=== PATIENT | female | born 1970 | race Caucasian/White ===

== ENCOUNTER → 2016-03-23 | Day surgery (SDC) | payer OTHER ==
[2016-03-20 08:27] VITALS: BMI 26.0
[~2016-03-23] VITALS: Ht 157.5 cm; Wt 65.9 kg
[~2016-03-23] MED LIST: ATV5 PO; CALCTAB13 PO; ESCI1TAB10 PO; GABA-112 PO; GABA1CAP PO; PEDICHW50 PO; PRLSR20 PO
[2016-03-23 08:34] VITALS: Ht 157.5 cm; Wt 65.9 kg
[2016-03-23 08:50] VITALS: BP 109/45; PULSE 80; TEMP 36.9; O2SAT 98
--- NOTE | 2016-04-13 11:37 | Procedure Note ---
Breath Hydrogen Test Interpretation Hydrogen Breath Test Substrate : 10 gm Lactulose Time H CO2 0 5 3.6 20 5 3.6 40 5 3.7 60 60 3.5 80 58 3.8 100 56 3.6 120 51 4 140 60 3.4 160 39 3.5 180 37 3.3 Impression: positive hydrogen breath test (likely represents underlying SIBO) Dr. Angela Samaniego
== END | disposition home or self-care (01) ==
LOC: C.GI 08:08
PROVIDERS: ATTEND Internal Medicine Gastroenterology
DX: R10.11 Right upper quadrant pain (principal); Z98.84 Bariatric surgery status; F32.9 Major depressive disorder, single episode, unspecified; M79.1 Myalgia; E66.3 Overweight; Z68.25 Body mass index [BMI] 25.0-25.9, adult

== ENCOUNTER 2024-03-28 15:48 | Inpatient (IN) ==
[2024-03-28 16:56] LABS: Appearance Urine Clear (Clear); Bilirubin Urine Negative (Negative); Blood Urine Negative (Negative); Color Urine Yellow; Glucose Urine UA Negative (Negative); Ketones Urine Negative (Negative); Leukocyte Esterase Urine Negative (Negative); Nitrite Urine Negative (Negative); Protein Urine Negative (Negative); Specific Gravity Urine 1.004 (1.000-1.030); Urobilinogen Urine Negative (Negative); pH Urine 6.5 (4.5-7.5)
[2024-03-28 17:06] LABS: Basophils # (auto) 0.04 K/uL (0.00-0.20); Basophils % (auto) 0.3 %; Eosinophils % (auto) 0.8 %; Hematocrit (blood only) 38.8 % (37.0-47.0); Hemoglobin 12.9 g/dl (12.0-16.0); Immature Granulocytes # (auto) 0.02 K/uL (0.01-0.20); Immature Granulocytes % (auto) 0.2 %; Lymphocytes # (auto) 1.85 K/uL (1.20-3.40); Lymphocytes % (auto) 15.4 %; Mean Corpuscular Hemoglobin 30.6 pg (25.0-34.0); Mean Corpuscular Hgb Conc 33.2 g/dL (32.0-36.0); Mean Corpuscular Volume 91.9 fL (80.0-100.0); Mean Platelet Volume 8.7 fL (9.4-12.4); Monocytes # (auto) 0.87 K/uL (0.11-0.59); Monocytes % (auto) 7.3 %; Platelet Count 428 K/uL (130-400); RDW Coefficient of Variation 12.2 % (11.5-14.5); Red Blood Count 4.22 M/uL (4.20-5.40); White Blood Count 11.98 K/ul (4.8-10.8)
[2024-03-28 17:13] LABS: Albumin Globulin Ratio 1.2 (0.9-2); Albumin Level 4.1 gm/dl (3.4-5.0); BUN Creatinine Ratio 11.8 (10-20); Bilirubin,Total 0.7 mg/dl (0.2-1.0); Calcium 9.2 mg/dl (8.6-10.3); Creatinine Clr Calc Pharmacy 87.4 ml/min; Globulin 3.4 gm/dl (2.5-4.0); Potassium 4.2 mmol/L (3.5-5.1); Total Protein 7.5 gm/dl (6.0-8.3)
[2024-03-28 17:18] LABS: Pregnancy Test, Serum Negative (Negative)
--- NOTE | 2024-03-28 17:31 | Emergency Department Note ---
ED Provider Note History of Present Illness Chief Complaint: Abdominal Pain Stated Complaint: ABD PAIN Time Seen by Provider: 03/28/24 16:56 Source: patient Mode of arrival: ambulatory Limitations: no limitations This patient is a 53-year-old female who presents to the emergency department for evaluation of right lower quadrant pain x 3 days. Patient reports that she has had ongoing right-sided abdominal pain. It is worse with movements. She has been somewhat constipated but had a bowel movement today. She reports some mild nausea but no vomiting. She has had a decreased appetite. She reports a history of gastric bypass about 15 years ago. She has tried Pepto-Bismol, Tylenol and pantoprazole for her pain without relief. She denies any fevers or urinary symptoms. Last menstrual period was 1 month ago. Home Medications Medication Instructions Recorded Confirmed Type lorazepam 1 mg tablet (Ativan) 0.5 mg PO HS 09/16/21 03/28/24 History multivitamin 1 tab PO DAILY 09/16/21 03/28/24 History trazodone 50 mg tablet 12.5 mg PO HS 09/16/21 03/28/24 History cyanocobalamin (vitamin B-12) 100 mcg IM MONTHLY 09/01/22 03/28/24 History 1,000 mcg/mL injection kit gabapentin 100 mg capsule 100 mg PO HS 09/01/22 03/28/24 History pantoprazole 40 mg tablet,delayed 40 mg PO DAILY PRN Acid Reflux 09/01/22 03/28/24 History release fluoxetine 10 mg capsule (Prozac) 10 mg PO QPM 04/04/23 03/28/24 History ondansetron 4 mg disintegrating 4 mg PO Q6H PRN nausea and 06/08/23 03/28/24 Rx tablet vomiting #12 tabs calcium 500 mg tablet 500 mg PO BID 01/16/24 03/28/24 History ezetimibe 10 mg tablet 10 mg PO HS 01/16/24 03/28/24 History Allergies Allergy/AdvReac Type Severity Reaction Status Date / Time latex AdvReac Mild ITCHING Verified 03/28/24 21:11 simvastatin AdvReac Mild MUSCLE PAIN Verified 03/28/24 21:11 Past Med/Surg History Problem List Esophageal dysphagia Patellofemoral arthralgia of left knee ARIANNA (iron deficiency anemia) Encounter for pre-operative examination Iliopsoas bursitis Hip impingement syndrome Medical History Hip impingement syndrome Iliopsoas bursitis previous injection with dr. jacobo Patellofemoral arthralgia of left knee left knee injection with dr. jacobo Pancreatic cyst follows with Dr. Samaniego - no issues Arthritis H. pylori infection hx of approx 5 yrs ago, following gastric bypass GERD (gastroesophageal reflux disease) Anemia has had iron infusions x 2, most recent 2022 TMJ (dislocation of temporomandibular joint) (2019) with surgery/steroid injection, 5 yrs ago, no more locking Depression Anxiety Mitral regurgitation MVP (mitral valve prolapse) follows with Dr. Rojo Hyperlipidemia no meds History of COVID-19 2020 > not hospitalized Nerve pain in legs reason for gabapentin Surgical History History of esophagogastroduodenoscopy (EGD) History of colonoscopy History of tooth extraction H/O bilateral breast reduction surgery H/O gastric bypass Family History Uncle Colon cancer Father Colonic polyp Brother Colonic polyp Sister Colonic polyp Social History Smoking Status: Never smoker Second Hand Exposure: No; Do You Dip or Chew Tobacco: No; Hx Alcohol Use: No Hx Substance Use: No Preferred Language: Slovak Communication Ability: Effective [employer] Required: No Beliefs That Will Affect Care: None Current Living Situation: Spouse Feels Safe at Home: Yes Assistive Devices: None Physical Exam Vital Signs Vital Signs - 24 hr 03/28/24 16:14 03/28/24 18:43 03/28/24 19:00 Temperature 36.1 C L Temperature Source Temporal Artery Scan Pulse Rate 106 H Pulse Rate [Finger] 81 94 H Respiratory Rate 18 18 16 Respiratory Effort / Characteristics Non-Labored Spontaneous Non-Labored Spontaneous Respiratory Depth Normal Normal Respiratory Pattern Regular Regular Blood Pressure 104/60 Blood Pressure [Right Arm] 125/81 119/81 Blood Pressure Mean 74 Blood Pressure Mean [Right Arm] 95 93 Pulse Oximetry 95 96 99 Oxygen Delivery Method Room Air Room Air Room Air Sepsis Recent Fever Within 48 Hours No Sepsis New/Unexplained Change in Mental Status N/A Sepsis Action Taken by Nursing No Action Required 03/28/24 20:00 Temperature Temperature Source Pulse Rate Pulse Rate [Finger] 87 Respiratory Rate 16 Respiratory Effort / Characteristics Respiratory Depth Respiratory Pattern Blood Pressure Blood Pressure [Right Arm] 126/89 Blood Pressure Mean Blood Pressure Mean [Right Arm] 101 Pulse Oximetry 97 Oxygen Delivery Method Room Air Sepsis Recent Fever Within 48 Hours Sepsis New/Unexplained Change in Mental Status Sepsis Action Taken by Nursing VITALS: Vitals are noted on the nurse's note and reviewed by myself. GENERAL: This is a 53-year-old female, in no acute distress, well-developed well-nourished. SKIN: The skin was without rashes. HEART: Regular rate and rhythm without murmurs gallops or rubs. LUNGS: Clear to auscultation bilaterally without wheezes, rales or rhonchi. ABDOMEN: Positive bowel sounds x 4. Moderate tenderness in the right lower quadrant. No guarding or rebound tenderness. NEURO: Patient was alert and oriented to person place and time. Course Administered Medications Sodium Chloride (Nss) 500 mls @ 125 mls/hr IV .Q4H ANA LUISA Stop: 03/29/24 02:20 Last Admin: 03/28/24 23:40 Dose: 125 mls/hr Documented By: MUMTAZ Lorazepam (Lorazepam 0.5 Mg Tab) 0.5 mg PO HS PRN PRN Reason: Anxiety Stop: 04/27/24 23:21 Last Admin: 03/28/24 23:40 Dose: 0.5 mg Documented By: MUMTAZ Trazodone HCl (Trazodone Hcl 50 Mg Tab) 12.5 mg PO HS ANA LUISA Stop: 04/27/24 23:29 Last Admin: 03/28/24 23:40 Dose: 12.5 mg Documented By: MUMTAZ Discontinued Medications Piperacillin Sod/Tazobactam Sod (Zosyn) 4.5 gm in 100 mls @ 200 mls/hr IV NOW ONE Stop: 03/28/24 21:24 Last Infusion: 03/28/24 22:06 Dose: Infused Documented By: Admin: 03/28/24 21:31 Dose: 200 mls/hr Documented By: JB Acetaminophen (Ofirmev) 1,000 mg in 100 mls @ 400 mls/hr IV NOW STA Stop: 03/28/24 21:15 Last Infusion: 03/28/24 21:37 Dose: Infused Documented By: Admin: 03/28/24 21:04 Dose: 400 mls/hr Documented By: AN Ioversol (Optiray 320 100ml) 92 ml IV ONCE ONE Stop: 03/28/24 18:34 Last Admin: 03/28/24 18:33 Dose: 92 ml Documented By: ROSA Medical Decision Making Differential Diagnosis Appendicitis, ovarian cyst, ovarian torsion, ectopic , TOA, PID, infections, diverticulitis, UTI, obstruction, mesenteric ischemia, aortic pathology, inflammatory bowel disease, renal colic, PUD, pancreatitis, biliary pathology, hernia, volvulus, constipation, as well as other pathologies. Laboratory Data Attestation: I reviewed the patient's lab results. 03/28/24 16:45 03/28/24 16:45 Lab Results 03/28/24 Range/Units 16:45 WBC 11.98 H (4.8-10.8) K/ul RBC 4.22 (4.20-5.40) M/uL Hgb 12.9 (12.0-16.0) g/dl Hct 38.8 (37.0-47.0) % MCV 91.9 (80.0-100.0) fL MCH 30.6 (25.0-34.0) pg MCHC 33.2 (32.0-36.0) g/dL RDW Std Deviation 41.0 (36.4-46.3) fL RDW Coeff of [place] 12.2 (11.5-14.5) % Plt Count 428 H (130-400) K/uL MPV 8.7 L (9.4-12.4) fL Immature Gran % (Auto) 0.2 % Neut % (Auto) 76.0 % Lymph % (Auto) 15.4 % Dukes % (Auto) 7.3 % Eos % (Auto) 0.8 % Baso % (Auto) 0.3 % Neut # (Auto) 9.10 H (1.40-6.50) K/uL Lymph # (Auto) 1.85 (1.20-3.40) K/uL Dukes # (Auto) 0.87 H (0.11-0.59) K/uL Eos # (Auto) 0.10 (0.00-0.50) K/uL Baso # (Auto) 0.04 (0.00-0.20) K/uL Immature Gran # (Auto) 0.02 (0.01-0.20) K/uL Sodium 137 (136-145) mmol/L Potassium 4.2 (3.5-5.1) mmol/L Chloride 103 (98-107) mmol/L Carbon Dioxide 29 (21-32) mmol/L Anion Gap 5 (3-11) BUN 8 (6-23) mg/dl Creatinine 0.68 (0.6-1.2) mg/dl Est Cr Clr Drug Dosing 87.4 ml/min eGFR 105.38 BUN/Creatinine Ratio 11.8 (10-20) Glucose 99 (70-99(Fasting)) mg/dl Calcium 9.2 (8.6-10.3) mg/dl Total Bilirubin 0.7 (0.2-1.0) mg/dl AST 16 (13-39) U/L ALT 15 (7-52) U/L Alkaline Phosphatase 125 H (34-104) U/L Total Protein 7.5 (6.0-8.3) gm/dl Albumin 4.1 (3.4-5.0) gm/dl Globulin 3.4 (2.5-4.0) gm/dl Albumin/Globulin Ratio 1.2 (0.9-2) Lipase 11 (11-82) U/L HCG, Qual Negative (Negative) Urine Color Yellow Urine Appearance Clear (Clear) Urine pH 6.5 (4.5-7.5) Ur Specific [place] 1.004 (1.000-1.030) Urine Protein Negative (Negative) Urine Glucose (UA) Negative (Negative) Urine Ketones Negative (Negative) Urine Blood Negative (Negative) Urine Nitrite Negative (Negative) Urine Bilirubin Negative (Negative) Urine Urobilinogen Negative (Negative) Ur Leukocyte Esterase Negative (Negative) Imaging Data Attestation: I personally reviewed and interpreted this imaging study as follows: Radiologist's Impression: Abdomen/Pelvis CT 03/28/24 16:57 EXAM: CT abd pelvis IV con only CLINICAL HISTORY: RLQ pain x 3 days, nausea; eb/gs/ek TECHNIQUE: CT of the abdomen and pelvis was performed with contrast, with the following protocol: axial images with, and reconstructed coronal and sagittal images. One of the following dose reduction techniques was utilized for this exam: Automated exposure control, adjustment of the mA and/or kV according to patient size, and use of iterative reconstruction. 92ml optiray 320 was given as an IV contrast. COMPARISON: No prior studies available for comparison. FINDINGS: Abdomen: Liver: Normal in size, shape, and density. Tiny hypodense focal lesion is seen at segment Odalys measuring about 3 mm likely a cyst. Hepatic vasculature and biliary ducts are unremarkable. Gallbladder and Biliary System: The gallbladder is normal in size and shape. No wall thickening, pericholecystic fluid, or gallstones were identified. The common bile duct is normal in caliber without dilation. Pancreas: Pancreatic head, body, and tail are visualized and appear normal in size and density. No pancreatic masses or calcifications were noted. The pancreatic duct is not dilated. Spleen: Normal in size, shape, and density. No splenic lesions or masses were identified. Kidneys and Adrenal Glands: Both kidneys are normal in size, shape, and position. Cortical thickness is within normal limits. No renal calculi or hydronephrosis. Adrenal glands are unremarkable with no evidence of masses or hyperplasia. Pelvis: Urinary Bladder: Normal in contour and wall thickness. No intraluminal lesions identified. Uterus: Normal in size and contour. No masses or abnormal thickening. Ovaries: Not well visualized, no gross abnormality. Vagina: Normal in contour and wall thickness. Cervix: No evidence of mass or abnormal thickening. Peritoneal and Retroperitoneal Structures: No free fluid or abnormal fluid collections were identified within the abdomen or pelvis. Few right paracolic lymph nodes are seen measuring up to 1.1 cm likely inflammatory. Small umbilical hernia containing fat. Bowel: Dilated blind-ended tubular structure is seen at the right iliac fossa measuring about 1.5 cm with surrounding marked fat smudging, soft tissue thickening as well as edematous changes and wall thickening of the cecum. Evidence of gastric sleeve surgery. Bones and Soft Tissues: Pelvic bones and soft tissues are unremarkable. No fractures or abnormal masses were identified. IMPRESSION: 1. Dilated blind-ended tubular structure is seen at the right iliac fossa measuring about 1.5 cm with surrounding marked fat smudging, soft tissue thickening representing acute appendicitis. 2. Edematous changes and wall thickening of the cecum likely associated colitis. with regional reactive lymph nodes. 3. Small umbilical hernia containing fat. 4. Tiny hypodense focal lesion is seen at segment Odalys measuring about 3 mm likely a cyst. Electronically signed by Britta Martin 03-28-2024 8:35 PM MDM Narrative This patient is a 53-year-old female who presents to the emergency department for evaluation of right lower quadrant abdominal pain. Labs were performed and showed a leukocytosis of 11.98. Labs otherwise unremarkable overall. CT of the abdomen/pelvis performed and reviewed by radiology and does show findings suggestive of acute appendicitis. Case was discussed with the general surgeon on-call, Dr. Parekh. He will admit the patient and take her to the OR tomorrow morning. Patient given a dose of Zosyn. She was given IV Tylenol for pain. She verbalized understanding and was discharged home in good condition. Discharge Plan Visit Data Chief Complaint: Abdominal Pain Stated Complaint: ABD PAIN ED Provider: Eliceo Cardoso ED Midlevel Provider: Christina Aguero Patient Disposition: Admitted As Inpatient Discharge Instructions Interventions: ED Discharge Assessment Last Done: 03/28/24 21:59
[2024-03-28] MEDS: OPTIRAY 320 100ml IV ONE (18:33)
--- NOTE | 2024-03-28 20:36 | CT Scan Report ---
EXAM: CT abd pelvis IV con only CLINICAL HISTORY: RLQ pain x 3 days, nausea; eb/gs/ek TECHNIQUE: CT of the abdomen and pelvis was performed with contrast, with the following protocol: axial images with, and reconstructed coronal and sagittal images. One of the following dose reduction techniques was utilized for this exam: Automated exposure control, adjustment of the mA and/or kV according to patient size, and use of iterative reconstruction. 92ml optiray 320 was given as an IV contrast. COMPARISON: No prior studies available for comparison. FINDINGS: Abdomen: Liver: Normal in size, shape, and density. Tiny hypodense focal lesion is seen at segment Odalys measuring about 3 mm likely a cyst. Hepatic vasculature and biliary ducts are unremarkable. Gallbladder and Biliary System: The gallbladder is normal in size and shape. No wall thickening, pericholecystic fluid, or gallstones were identified. The common bile duct is normal in caliber without dilation. Pancreas: Pancreatic head, body, and tail are visualized and appear normal in size and density. No pancreatic masses or calcifications were noted. The pancreatic duct is not dilated. Spleen: Normal in size, shape, and density. No splenic lesions or masses were identified. Kidneys and Adrenal Glands: Both kidneys are normal in size, shape, and position. Cortical thickness is within normal limits. No renal calculi or hydronephrosis. Adrenal glands are unremarkable with no evidence of masses or hyperplasia. Pelvis: Urinary Bladder: Normal in contour and wall thickness. No intraluminal lesions identified. Uterus: Normal in size and contour. No masses or abnormal thickening. Ovaries: Not well visualized, no gross abnormality. Vagina: Normal in contour and wall thickness. Cervix: No evidence of mass or abnormal thickening. Peritoneal and Retroperitoneal Structures: No free fluid or abnormal fluid collections were identified within the abdomen or pelvis. Few right paracolic lymph nodes are seen measuring up to 1.1 cm likely inflammatory. Small umbilical hernia containing fat. Bowel: Dilated blind-ended tubular structure is seen at the right iliac fossa measuring about 1.5 cm with surrounding marked fat smudging, soft tissue thickening as well as edematous changes and wall thickening of the cecum. Evidence of gastric sleeve surgery. Bones and Soft Tissues: Pelvic bones and soft tissues are unremarkable. No fractures or abnormal masses were identified. IMPRESSION: 1. Dilated blind-ended tubular structure is seen at the right iliac fossa measuring about 1.5 cm with surrounding marked fat smudging, soft tissue thickening representing acute appendicitis. 2. Edematous changes and wall thickening of the cecum likely associated colitis. with regional reactive lymph nodes. 3. Small umbilical hernia containing fat. 4. Tiny hypodense focal lesion is seen at segment Odalys measuring about 3 mm likely a cyst. Electronically signed by Britta Martin 03-28-2024 8:35 PM
[2024-03-28] MEDS: ACETAMINOPHEN 1,000 MG/100 ML VIAL IV STA (21:04)
[2024-03-28] MEDS: PIPERACILLIN/TAZOBACTAM 4.5 GM/100 ML BAG IV ONE (21:31)
[2024-03-28] MEDS ORDERED: oxyCODONE HCL IR 5 MG TAB (IMMEDIATE RELEASE) PO PRN (22:21)
[2024-03-28] MEDS ORDERED: ONDANSETRON INJ 2 MG/ML 2 ML VIAL IV PRN (22:21)
--- OUTSIDE RECORDS SUMMARY | 2024-03-28 23:19 | External Medical Summary | Summary of Care ---
Author Name Unknown Organization [facility] Address [address] [facility] [place] [address] Phone [phone] Care Team Providers Care Design/Animation Instructor Name Role Phone David Ethel Velez PA-C Primary Care Provider [phone] Reason for Visit * Reason Comments Acute Encounter Details Date Type Department Care Team (Late st Contact Info) Description 03/10/2024 3:40 PM EST Office Visit Family Medicine [address] [place] [address] Fanny Montemayor MD [address] [place] [address] [place] [phone] Acute pharyngitis, unspecified etiology* Allergies Active Allergy Reactions Criticality Noted Date Comments Latex 05/26/2003 itchiness Simvastatin 12/20/2007 Muscle aches documented as of this encounter (statuses as of 03/10/2024) Medications FLINTSTONES COMPLETE PO CHEW 2 tablets daily Active Sucralfate 1 GM Oral Tablet (Carafate) Take 1 Tablet by mouth 4 times a day. 120 Tablet 3 2 Active Cyclobenzaprine HCl 5 MG Oral Tablet (Flexeril) Take by mouth 1 Tablet as needed in the morning AND 1 Tablet as needed at noon AND 1 Tablet as needed in the evening for Muscle spasms. 270 Tablet 2 Active Cyanocobalamin 1000 MCG/ML Injection Solution (Cyanocobalamin) Indications:Post gastric surgery syndrome Inject 1,000 mcg as directed every 30 days. 1 mL 11 3 Active BD Luer-Josiah Syringe 25G X 5/8" 3 ML (Syringe/Needle (Disp))Indicatio ns:Postgastric surgery syndrome USE 1 SYRINGE ONCE EVERY MONTH WITH VITAMIN B 12 3 Each 3 Active Pantoprazole Sodium 20 MG Oral Tablet Delayed Release (Protonix) Take 1 Tablet by mouth in the morning. 90 Tablet 3 4 Active Phenazopyridine HCl 200 MG Oral Tablet (Pyridium)Indica tions:Dysuria Take 1 Tablet by mouth 3 times a day as needed for Other (dysuria). After meals for pain with urination 6 Tablet 4 Active Dicyclomine HCl 10 MG Oral Capsule (Bentyl) Take 1 Capsule by mouth in the morning and 1 Capsule at noon and 1 Capsule in the evening and 1 Capsule before bedtime. For abdominal pain. 120 Capsule 4 Active Ondansetron HCl 4 MG Oral Tablet (Zofran) Take 2 Tablets by mouth every 8 hours as needed for Nausea. 60 Tablet 1 4 Active Ezetimibe 10 MG Oral Tablet (Zetia) Take 1 Tablet by mouth daily. 90 Tablet 3 4 Active traZODone HCl 50 MG Oral Tablet (Desyrel) Take 1 Tablet by mouth every night at bedtime. 90 Tablet 1 4 Active Gabapentin 100 MG Oral Capsule (Neurontin) Take 1 Capsule by mouth in the morning and 1 Capsule at noon and 1 Capsule before bedtime. 90 Capsule 5 4 Active FLUoxetine HCl 10 MG Oral Capsule (PROzac)Indicati ons:Depressive disorder Take 1 Capsule by mouth in the morning. 90 Capsule 1 4 Active Fluticasone Propionate 50 MCG/ACT Nasal Suspension (Flonase)Indicat ions:Chronic sinusitis, unspecified location Administer 1 [place] into each nostril in the morning and 1 [place] before bedtime. 15.8 mL 8 4 Active LORazepam 0.5 MG Oral Tablet (Ativan)Indicati ons:Persistent insomnia TAKE 1 TO 2 TABLETS BY MOUTH AT BEDTIME NEEDED FOR INSOMNIA 60 Tablet 4 Active documented as of this encounter (statuses as of 03/10/2024) Active Problems Problem Noted Date Diagnosed Date Cobalamin deficiency 03/10/2024 Insomnia 03/10/2024 Iron deficiency 03/10/2024 Nutritional deficiency disorder 03/10/2024 Vitamin D deficiency 03/10/2024 Urethral stricture 03/10/2024 Globus sensation 12/18/2023 Oropharyngeal dysphagia 12/18/2023 PVC (premature ventricular contraction) 09/11/19 Mitral valve prolapse 07/21/2023 Diastolic dysfunction 07/21/2023 Chest pain 07/21/2023 Prolonged Q-T interval on ECG 07/21/2023 Nausea without vomiting 06/13/2023 Myofascial pain syndrome 02/23/2020 Fibromyalgia 01/12/2020 DDD (degenerative disc disease), cervical 2017 Major depressive disorder, recurrent, mild 12/04 Iron deficiency anemia secon rfanki to inadequate dietary iron intake 09/26/2016 Dyslipidemia, goal LDL below 100 02/16/2009 Overview (02/16/2009): Per Lipid Taxonomy. 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 Overview (12/11/2016): ICD-10 update of inactive term Gastric bypass status for obesity 04/16/2008 Overview (10/23/2014): [facility] [place] [facility] OTHER*[id number] 02/25/2008 GERD (gastroesophageal reflux disease) 8 Chronic rhinitis 07/30/1997 Depressive disorder documented as of this encounter (statuses as of 03/10/2024) Resolved Problems Problem Noted Date Diagnosed Date Resolved Date Tachycardia 07/21/2023 07/21/2023 Diarrhea of presumed infectious origin 06/13/2023 07/21/2023 Colitis 06/13/2023 07/21/2023 Acute dehydration 06/13/2023 07/21/2023 Overweight (BMI 25.0-29.9) 06/07/2009 0 08/14/2019 Overview (06/07/2009): Per Obesity Taxonomy Abdominal pain, right lower quadrant 02/15/2009 12/21/2016 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 Morbid obesity, BMI not known 05/07/2007 06/07/2009 Overview (06/07/2009): Per Obesity Taxonomy Mixed dyslipidemia 06/16/2005 9 Overview (02/16/2009): Per Lipid Taxonomy. Viral warts 02/18/1998 04/16/2018 Overview (12/11/2016): ICD-10 update of inactive term RHEUMATIC HEART DIS NOS 03/12/199112/12 documented as of this encounter (statuses as of 03/10/2024) Immunizations Name Administration Dates Next Due COVID-19 mRNA, LNP-s, No Pre serve, 2-Dose Series ([employer]) 04/17/2020,03/27/2020 Hepatitis B, 20+ yrs 07/24/2007,05/29/2007 MMR - Measles/Mumps/Rubella Vaccine 09/18/2005 PPD 01/18/2007,01/11/2007 Season Influenza, Quad, PF, Adjuvanted, 65+ Yrs, IM (FLUAD) 01/23/2020 Seasonal Influenza Vac., MDV , IM, 0.5 mL (Fluzone) 01/11/2007 Seasonal Influenza, PF, 6 M & above, IM , (FluLaval or Fluzone) 12/21/2016 Seasonal Influenza, Quadriva lent, No Preserve, IM 12/31/2020,01/23/2020,01/14/2019, 019,01/16/2018 TDAP (age 10 and older)(Boostrix) 2023(Deferred: Patient Refused - PAtient left without recieving),01/16/2013 documented as of this encounter Social History Tobacco Use Types Packs/Day Years Used Date Smoking Tobacco: Never Smokeless Tobacco: Never Alcohol Use Standard Drinks/Week Comments No 0 (1 standard drink = 0.6 oz pur e alcohol) denies PHQ-2 Answer Date Recorded PHQ Adult Total Score 0 06/17/2020 Hunger Vital Sign Answer Date Recorded Within the past 12 months, y ou worried that your food would run out before you got the money to buy more. Never true 02/23/20 20 Within the past 12 months, t he food you bought just didn't last and you didn't have money to get more. 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 Not on file Not on file Not on file Not on file Not on file Not on file Not on file documented as of this encounter Last Filed Vital Signs Vital Sign Reading Time Taken Comments Blood Pressure 112/74 03/10/2024 3:31 PM EST Pulse 98 03/10/2024 3:31 PM EST Temperature 36.6 C (97.8 F) 03/10/2024 3:31 PM ES T Respiratory Rate - - Oxygen Saturation 98% 03/10/2024 3:31 PM EST Inhaled Oxygen Concentration - - Weight 67.9 kg (149 lb 12.8 oz) 03/10/2024 3:31 PM EST Height 157.5 cm (5' 2.01") 03/10/2024 3:31 PM ES T Body Mass Index 27.39 03/10/2024 3:31 PM EST documented in this encounter Progress Notes * Fanny Montemayor MD - 03/10/2024 3:41 PM EST * Fanny Montemayor MD - 03/10/2024 3:33 PM EST Images from the original note were not included. History of Present Illness Josie Farmer is a 53 year old female that presents for Acute Sore throat since Sat. Niece has strep. Getting a little better. Hx of rheumatic fever when she was a teen after strep. Has mitral valve prolapse and regurg now from it. Niece tested positive for strep recently, was around her for the holidays. She did have a few dosesof amoxicillin at home, took a few doses in the last few days. [place] feverish/chilled, didn't check temp. Appetite is low, getting fluids in. Physical Exam BP 112/74 | Pulse 98 | Temp 97.8 F (36.6 C) (Infrared ) | Ht 5' 2.01" (1.575 m) | Wt 149 lb 12.8 oz (67.9 kg) | SpO2 98% | BMI 27.39 kg/m | BSA 1.72 m Physical Exam Vitals and nursing note reviewed. Constitutional: General: She is not in acute distress. HENT: Head: Normocephalic and atraumatic. Mouth/Throat: Mouth: Mucous membranes are moist. Pharynx: Pharyngeal swelling and posterior oropharyngeal erythema present. No oropharyngeal exudate. Eyes: Extraocular Movements: Extraocular movements intact. Neck: Thyroid: No thyromegaly. Cardiovascular: Rate and Rhythm: Normal rate and regular rhythm. Pulmonary: Effort: Pulmonary effort is normal. Breath sounds: Normal breath sounds. Musculoskeletal: Cervical back: Normal range of motion and neck supple. Lymphadenopathy: Cervical: Cervical adenopathy present. Upper Body: Right upper body: No supraclavicular adenopathy. Left upper body: No supraclavicular adenopathy. Skin: General: Skin is warm and dry. Neurological: General: No focal deficit present. Mental Status: She is alert and oriented to person, place, and time. Psychiatric: Mood and Affect: Mood normal. Behavior: Behavior normal. Assessment and Plan Acute pharyngitis, unspecified etiology Rapid strep negative. With her history, will send for culture to ensure not GAS. Discussed supportive treatment including salt water gargles, honey, fluids, tylenol/ibuprofen for discomfort. Startingto improve. To call if worsening or new issues. Wrap-Up Follow Up: Return if symptoms worsen or fail to improve. Time: I spent a total of 20-29 minutes (exact time 21 mins) on the date of service in preparation, delivery, and documentation of the care provided to Josie Farmer excluding any time spent in the performance of separately billed services. documented in this encounter Nursing Notes * Joy Marc CMA - 03/10/2024 3:34 PM EST Pt reports her niece has strep and she think she has it now. States hurts up near her glands in herneck, some sinus congestion, headache, neck pain. Pt has been taking zinic and OCT daytime cold andflu, tyelenol, and 2 tabs of left over amoxicillin. documented in this encounter Plan of Treatment Scheduled Orders Name Type Priority Associated Diagnoses Orde r Schedule STREP A SCREEN, POINT OF CARE (ENTER/EDIT) Point of Care Testing Routine Acute pharyngitis, unspecified etiology Ordered: 03/10/2024 GROUP A STREP PCR Lab Routine Acute pharyngitis, unspecified etiology Ordered: 03/10/2024 Scheduled Procedures Name Priority Associated Diagnoses Date/Ti me COLONOSCOPY FLEXIBLE PROXIMA L DIAGNOSTIC Recall FH: colon cancer Family history of colonic polyps Health Maintenance Due Date Last Done Comments Cologuard 2017 Fecal Occult Blood Test 2017 Sigmoidoscopy 2017 Depression Monitoring 06/17/2021 06/17/2020 Pneumococcal Vaccine: 50+ Years (1 of 1 - PCV) 2022 Zoster Vaccines (1 of 2) 2022 DTap/Tdap Vaccines (6 - Td or Tdap) 01/16/2023 01/16/2013, 01/01/2002, 07/10/1990, Additional history exists Colonoscopy 03/18/2023 03/18/2018, 03/18/2018 Colorectal Cancer Screening 03/18/2023 COVID-19 Vaccine ( season) 2023 04/17/2020, 03/27/2020 Influenza Vaccine (FLU shot) (#1) 2023 12/31/2020, 01/23/2020, 01/23/2020, Additional history exists Mammogram 06/12/2024 06/13/2023, 07/12, 10/20/2021, Additional history exists Pap Smear 03/16/2025 03/16/2022, 090 04/2020, 03/26/2017, Additional history exists Diabetes Screening 09/07/2026 09/08/2023, 0 07/25/2023, 07/22/2022, Additional history exists Cervical Cancer Screening 03/16/2027 HPV/Co-Test 03/16/2027 03/16/2022 Lipid Panel 01/02/2029 01/03/2024, 08/11, 07/22/2022, Additional history exists Hepatitis B Vaccine Completed 07/24/2007, 05/29/2007, 06/25/2001, Additional history exists RETIRED - COLONOSCOPY-EVERY 5 YRS AGES 18-100 Discontinued 03/18/2018, 03/18/2018 HPV (Gardasil) Vaccine Aged Out No lo nger eligible based on patient's age to complete this topic MENINGOCOCCAL (MENACTRA/MENVEO) Aged Out No longer eligible based on patient's age to complete this topic documented as of this encounter Medical Devices Not on filedocumented as of this encounter Visit Diagnoses Diagnosis Acute pharyngitis, unspecified etiology- Primary documented in this encounter Additional Health Concerns Infection Onset Date Last Indicated Resolved Time Campylobacter 06/13/2023 06/13/2023 Giardia lamblia 06/13/2023 06/13/2023 documented as of this encounter Advance Directives * Full Code (Latest Code Status on File) Date Activated Date Inactivated Comments 04/16/2008 3:49 PM 04/18/2008 2:28 PM * Full Code Date Activated Date Inactivated Comments 04/16/2008 10:39 AM 04/16/2008 3:49 PM Care Teams Design/Animation Instructor Relationship Specialty Start Date End Date Ethel Hernandez PA-C [address] [place], [place] [address] PCP - General Physician Tieing Machine Operator 03/22/22 documented as of this encounter
--- OUTSIDE RECORDS SUMMARY | 2024-03-28 23:19 | External Medical Summary | Summary of Care ---
Author Name Unknown Organization [facility] Address [address] [facility] [place] [address] Phone [phone] Care Team Providers Care Cloth Drier Name Role Phone David Ethel Velez PA-C Primary Care Provider [phone] Reason for Visit * Reason Comments Acute Encounter Details Date Type Department Care Team (Late st Contact Info) Description 03/10/2024 3:40 PM EST Office Visit Family Medicine [address] [place] [address] Fanny Montemayor MD [address] [place] [address] [place] [address] Acute pharyngitis, unspecified etiology* [...] (Flonase)Indicat ions:Chronic sinusitis, unspecified location Administer 1 [place] into each nostril in the morning and 1 [place] before bedtime. 15.8 mL 8 4 Active [...] recurrent, mild 12/04 Iron deficiency anemia secon franki to inadequate dietary iron intake 09/26/2016 Dyslipidemia, goal LDL below 100 02/16/2009 Overview (02/16/2009): Per Lipid Taxonomy. 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 [place] feverish/chilled, didn't check temp. Appetite is low, [...] 10:39 AM 04/16/2008 3:49 PM Care Teams Cloth Drier Relationship Specialty Start Date End Date Ethel Hernandez PA-C [address] [place], [place] [address] PCP - General Physician Braiding Machine Tender 03/22/22 documented as of this encounter
--- OUTSIDE RECORDS SUMMARY | 2024-03-28 23:19 | External Medical Summary | Summary of Care ---
Author Name Unknown Organization [facility] Address [address] [facility] [place] [address] Phone [phone] Care Team Providers Care Testing Projects Administrator Name Role Phone David Ethel Velez PA-C Primary Care Provider [phone] Reason for Visit * Reason Comments Acute Encounter Details Date Type Department Care Team (Late st Contact Info) Description 03/10/2024 3:40 PM EST Office Visit Family Medicine [address] [place] [address] Fanny Montemayor MD [address] [place] [address] [place] [address] Acute pharyngitis, unspecified etiology* [...] (Flonase)Indicat ions:Chronic sinusitis, unspecified location Administer 1 [place] into each nostril in the morning and 1 [place] before bedtime. 15.8 mL 8 4 Active [...] bypass status for obesity 04/16/2008 Overview (10/23/2014[place] [facility] [place] [facility] [place][id number] 02/25/2008 GERD (gastroesophageal reflux disease) 8 Chronic [...] mRNA, LNP-s, No Pre serve, 2-Dose Series ([employer]) 04/17/2020,03/27/2020 DTWP - Dipth/Tet/Whole Cell Pertussis 11/02/1977,04/20/1973,1972,08/20,1972 Diptheria/Tetanus (Adult) 07/10/1990 Hepatitis B, 20+ yrs 07/24/2007,05/29/19 08,06/25/2001,01/11,12/11/2000 05/11/2000 MMR - Measles/Mumps/Rubella Vaccine 09/18/2005 Measles Vaccine 07/22/1981,01/24/1973 OPV - Polio Virus Vaccine (Oral) 12/19/1977,10/11,1972 PPD 01/18/2007, 7,06/02/2003,10/21,03/27/2001 Rubella Vaccine 05/18/1973 Season Influenza, Quad, PF, Adjuvanted, 65+ Yrs, IM (FLUAD) 01/23/2020 Seasonal Influenza Vac., MDV , IM, 0.5 mL (Fluzone) 01/11/2007,01/24/2005,01/01/2002 Seasonal Influenza Virus Vac cine, Unspecified Formulation 01/21/1998 Seasonal Influenza, PF, 6 M & above, IM , (FluLaval or Fluzone) 12/21/2016 Seasonal Influenza, Quadriva lent, No Preserve, IM 12/31/2020,01/23/2020,01/14/2019,01/14,01/16/2018 TD - Tetanus/Diptheria (ADULT) 01/01/2002 TDAP (age 10 and older)(Boostrix) 2023(Deferred: Patient [...] 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 [place] feverish/chilled, didn't check temp. Appetite is low, [...] Type Priority Associated Diagnoses Orde r Schedule GROUP A STREP PCR Lab Routine Acute [...] Additional history exists Pap Smear 03/16/2025 03/16/2022, 0904/2020, 03/26/2017, Additional history exists Diabetes Screening 09/07/2026 [...] Not on filedocumented as of this encounter Procedures Procedure Name Priority Date/Time Associated Diagnosis Comments STREP A SCREEN, POINT OF CARE (ENTER/EDIT) Routine 03/10/2024 Acute pharyngitis, unspecified etiology documented in this encounter Results * STREP A SCREEN, POINT OF CARE (ENTER/EDIT) (03/10/2024) Strep A Result Negative Negative Procedural Control Valid? Yes Lot Number [id number] Expiration Date 12/27/24 Swab Throat swab / Unknown 03/10/2024 Fanny James MD LAB POIN T OF CARE TEST ENTER/EDIT ORDERABLES Final Result documented in this encounter Visit Diagnoses Diagnosis Acute pharyngitis, [...] 10:39 AM 04/16/2008 3:49 PM Care Teams Testing Projects Administrator Relationship Specialty Start Date End Date Ethel Hernandez PA-C [address] [place] [address] PCP - General Physician Refueler 03/22/22 documented as of this encounter
--- OUTSIDE RECORDS SUMMARY | 2024-03-28 23:19 | External Medical Summary | Summary of Care ---
Author Name Unknown Organization [facility] Address [address] [facility] [address] Phone [phone] Care Team Providers Care Amusement Machine Mechanic Name Role Phone Ethel Hernandez PA-C Primary Care Provider [phone] Encounter Details Date Type Department Care Team (Late st Contact Info) Description 01/31/2024 Orders Only Family Practice [facility] [address] [facility] [place] [address] Ethel Hernandez PA-C [address] [facility] [place] [address] Allergies Active Allergy Reactions Criticality Noted Date Comments Latex 05/26/2003 itchiness Simvastatin 12/20/2007 Muscle aches documented as of this encounter (statuses as of 01/31/2024) Medications FLINTSTONES COMPLETE PO CHEW 2 tablets [...] (Flonase)Indicat ions:Chronic sinusitis, unspecified location Administer 1 [place] into each nostril in the morning and 1 [place] before bedtime. 15.8 mL 8 4 Active LORazepam 0.5 MG Oral Tablet (Ativan)Indicati ons:Persistent insomnia TAKE 1 TO 2 TABLETS BY MOUTH AT BEDTIME NEEDED FOR INSOMNIA 60 Tablet 4 Active documented as of this encounter (statuses as of 01/31/2024) Active Problems Problem Noted Date Diagnosed Date Globus sensation 12/18/2023 Oropharyngeal dysphagia 12/18/2023 PVC (premature ventricular contraction) 09/11/19 24 Mitral valve prolapse 07/21/2023 Diastolic dysfunction 07/21/2023 [...] bypass status for obesity 04/16/2008 Overview (10/23/2014): [facility] [place] [facility] OTHER*[id number] 02/25/2008 GERD (gastroesophageal reflux disease) 8 Chronic rhinitis 07/30/1997 Depressive disorder documented as of this encounter (statuses as of 01/31/2024) Resolved Problems Problem Noted Date Diagnosed Date [...] (06/07/2009): Per Obesity Taxonomy Mixed dyslipidemia 06/16/2005 Overview (02/16/2009): Per Lipid Taxonomy. 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 on file Not on file Not on file Not on file Not on file Not on file documented as of this encounter Plan of Treatment Scheduled Procedures Name Priority Associated Diagnoses Date/Ti me COLONOSCOPY FLEXIBLE PROXIMA L DIAGNOSTIC Recall FH: colon cancer Family history of colonic polyps Health Maintenance Due Date Last Done Comments Cologuard 2017 Fecal Occult Blood Test 2017 Sigmoidoscopy 2017 Depression Monitoring 06/17/2021 06/17/2020 Zoster Vaccines (1 of 2) 2022 DTap/Tdap Vaccines (6 - Td or Tdap) 01/16/2023 01/16/2013, 01/01/2002, 07/10/1990, Additional history exists Colonoscopy 03/18/2023 03/18/2018, 03/18/2018 Colorectal Cancer Screening 03/18/2023 COVID-19 Vaccine ( season) 2023 04/17/2020, 03/27/2020 Influenza Vaccine (FLU shot) (#1) 2023 12/31/2020, 01/23/2020, 01/23/2020, Additional history exists Mammogram 06/12/2024 06/13/2023, 053 03/2022, 10/20/2021, Additional history exists Pap Smear 03/16/2025 03/16/2022, 09/0 04/2020, 03/26/2017, Additional history exists Diabetes Screening 09/07/2026 09/08/2023, 0 07/25/2023, 07/22/2022, Additional history exists Cervical Cancer Screening 03/16/2027 HPV/Co-Test 03/16/2027 03/16/2022 Lipid Panel 01/02/2029 01/03/2024, 06/2 11/2023, 07/22/2022, Additional history exists Hepatitis B Vaccine Completed 07/24/2007, 05/29/2007, 06/25/2001, Additional history exists RETIRED - COLONOSCOPY-EVERY 5 YRS AGES 18-100 Discontinued 03/18/2018, 03/18/2018 HPV (Gardasil) Vaccine Aged Out No lo nger eligible based on patient's age to complete this topic MENINGOCOCCAL (MENACTRA/MENVEO) Aged Out No longer eligible based on patient's age to complete this topic Pneumococcal Vaccine: Pediatrics (0 to 5 Years) and At-Risk Patients (6 to 64 Years) Aged Out No longer eligible based on patient's age to complete this topic documented as of this encounter Medical Devices Not on filedocumented as of this encounter Procedures Procedure Name Priority Date/Time Associated Diagnosis Comments UPPER ENDOSCOPY, OUTSIDE PROCEDURE Routine 01/30/2024 documented in this encounter Results * UPPER ENDOSCOPY, OUTSIDE PROCEDURE (01/30/2024) 01/30/2024 Wellington Norman Case DO GASTRO UPPER Final Resul t OUTSIDE LAB (SEE SCANNED REPORT) documented in this encounter Additional Health Concerns Infection Onset Date Last Indicated Resolved Time Campylobacter 06/13/2023 06/13/2023 Giardia lamblia 06/13/2023 06/13/2023 documented as of this encounter Advance Directives * Full Code (Latest Code Status on File) Date Activated Date Inactivated Comments 04/16/2008 3:49 PM 04/18/2008 2:28 PM * Full Code Date Activated Date Inactivated Comments 04/16/2008 10:39 AM 04/16/2008 3:49 PM Care Teams Amusement Machine Mechanic Relationship Specialty Start Date End Date Ethel Hernandez PA-C [address] [place] [address] PCP - General Physician Fruit Dryer 03/22/22 documented as of this encounter
--- OUTSIDE RECORDS SUMMARY | 2024-03-28 23:19 | External Medical Summary ---
Author Name Unknown Address Unknown Organization K01:LABORATORY [address] [facility] [address] Laboratory Report Ordering Provider Test Date Status MELANIE LYNCH 03/10/2024 16:11:00 Final Observation Date Value Abnormality Reference (Units) Status Streptococcus pyogenes DNA [Presence] in Throat by ALISA with probe detection 03/10/2024 16:11:00 Negative. No Group A Streptococcus detected by PCR (amplified probe). Negative Final This test was developed and its performance characteristics determined by [facility]. It has not been cleared or approved by the FDA. The laboratory is regulated under CLIA as qualified to perform high- complexity testing. This test is used for clinical purposes. It should not be regarded as investigational or for research. Performing Location [facility] - [facility] [address]. [facility] [address]
[2024-03-28] MEDS: SODIUM CHLORIDE 0.9% 500 ML IV SCH (23:40)
[2024-03-28] MEDS: LORazepam 0.5 MG TAB PO PRN (23:40)
[2024-03-28] MEDS: traZODone HCL 50 MG TAB PO SCH (23:40)
[2024-03-29] MEDS: PIPERACILLIN/TAZOBACTAM 4.5 GM/100 ML BAG IV SCH (03:47)
[2024-03-29] MEDS: ACETAMINOPHEN 325 MG TAB PO PRN (03:52)
[2024-03-29] MEDS ORDERED: LIDOCAINE 2% 2 ML VIAL/AMP(20MG/ML) INFIL ONE (06:46)
[2024-03-29] MEDS ORDERED: fentaNYL citrate PF 100 MCG/2 ML VIAL ONE (06:46)
[2024-03-29] MEDS ORDERED: MIDAZOLAM HCL 1 MG/ML 2ML VIAL ONE (06:46)
[2024-03-29] MEDS ORDERED: ROCURONIUM BROMIDE 10 MG/ML 5 ML VIAL IV ONE (06:46)
[2024-03-29] MEDS ORDERED: PROPOFOL IV EMULSION 10 MG/ML 20 ML VIAL IV ONE (06:46)
[2024-03-29] MEDS ORDERED: ONDANSETRON INJ 2 MG/ML 2 ML VIAL ONE (06:47)
[2024-03-29] MEDS ORDERED: DEXAMETHASONE SOD INJ 4 MG/ML VIAL ONE (06:47)
[2024-03-29] MEDS ORDERED: METOCLOPRAMIDE HCL INJ 5 MG/ML 2 ML VIAL ONE (06:47)
[2024-03-29] MEDS ORDERED: ACETAMINOPHEN 1000 MG/100 ML IV IV ONE (06:54)
--- NOTE | 2024-03-29 07:00 | Surgery Progress Note ---
Date of Service March 29, 2024 Assessment & Plan (1) Acute appendicitis: Plan: Her CT images and results were personally viewed and interpreted by myself She does have a dilated appendix with significant surrounding fat stranding consistent with acute appendicitis She has been admitted and kept n.p.o. and given IV antibiotics Will plan on a laparoscopic appendectomy, possible open today Consent was obtained, risks discussed including bleeding, infection, leak, abscess Admission and Anticipated Discharge Date Admission Date: March 28, 2024 Subjective Patient seen and examined. She states that about a week ago she developed some generalized abdominal pain. This did worsen a couple days ago and is now located in the right lower quadrant. She states that sharp without radiation. She denies any nausea or vomiting. She denies any fevers or chills. Previous abdominal surgeries include a laparoscopic Margaret-en-Y gastric bypass 16 years ago. She does not take any blood thinners. Review of Systems Constitutional: no fever and no chills Eyes: no blind spots and no dry eyes Ear, Nose, Mouth, Throat: no ear pain and no hearing loss Respiratory: no cough and no dyspnea Cardiovascular: no chest pain and no dyspnea on exertion Gastrointestinal: + abdominal pain and + nausea; no vomiti ng, no constipation and no diarrhea/loose stools Genitourinary: no dysuria and no urinary urgency Musculoskeletal: no back pain and no neck pain Integumentary: no acne, no skin ulcer and no sores Neurologic: no gait abnormality and no unsteadiness Psychiatric: no behavioral changes and no depression Hematologic / Lymphatic: no easy bleeding and no easy bruising Physical Exam Constitutional: WD/WN, vitals as above Eyes: PERRL, conjunctivae normal, anicteric sclerae ENMT: external ear and nose normal, oropharynx normal Neck: trachea midline, no thyromegaly Respiratory: normal respiratory effort, lungs clear to auscultation Cardiovascular: RRR, no murmur, no edema Gastrointestinal (Abdomen): Inspection/Auscultation: abdomen normal to inspec tion; abdomen not distended Percussion/Palpation: + abdomen tender (Right lower quadrant) and abdomen soft; no guarding and no hernia Musculoskeletal: no cyanosis or clubbing, extremities motor strength 5/5 Skin: no rashes, warm and dry Neurologic: PERRL, EOMI, accommodation nl, no face palsy, no dysarthria Psychiatric: A+Ox3, euthymic affect Results & Data Vital Signs (Past 12 Hours) Vital Signs Temp Pulse Pulse Resp BP BP Pulse Ox 03/29/24 06:50 36.4 C L 68 16 104/67 95 03/28/24 22:20 36.6 C 90 16 121/63 97 03/28/24 21:59 91 H 16 114/66 98 03/28/24 20:00 87 16 126/89 97 03/28/24 19:00 94 H 16 119/81 99 O2 Del Method 03/29/24 06:50 Room Air 03/28/24 22:20 Room Air 03/28/24 21:59 Room Air 03/28/24 20:00 Room Air 03/28/24 19:00 Room Air PG Care Time/CCT Total # of Minutes Spent Total Time Spent with Patient: Total time spent is greater than 50% in coordination of care (as documented) at patient's floor/unit and/or counseling patient: Coding Level of Care Code 29288 SUB INP/OBS CARE 3/50MIN Diagnoses Acute appendicitis K35.80
--- NOTE | 2024-03-29 07:12 | Anesthesiology Consultation ---
Date of Service March 29, 2024 Assessment & Plan (1) Encounter for pre-operative examination: Chart Review Chart Review: Acceptable Risk for Surgery History Surgery Operation Date: 03/29/24 07:30 Proposed Procedures p Laparoscopic Appendectomy - Marques Parekh DO Height/Weight Height: 5 ft 2 in Weight: 65.6 kg Allergies Allergy/AdvReac Type Severity Reaction Status Date / Time latex AdvReac Mild ITCHING Verified 03/28/24 21:11 simvastatin AdvReac Mild MUSCLE PAIN Verified 03/28/24 21:11 Medications Home Medications Medication Instructions Recorded Confirmed Last Taken lorazepam 1 mg tablet (Ativan) 0.5 mg PO HS 09/16/21 03/28/24 01/29/24 multivitamin 1 tab PO DAILY 09/16/21 03/28/24 01/29/24 trazodone 50 mg tablet 12.5 mg PO HS 09/16/21 03/28/24 01/29/24 cyanocobalamin (vitamin B-12) 100 mcg IM MONTHLY 09/01/22 03/28/24 08/15/22 1,000 mcg/mL injection kit gabapentin 100 mg capsule 100 mg PO HS 09/01/22 03/28/24 01/29/24 pantoprazole 40 mg tablet,delayed 40 mg PO DAILY PRN Acid Reflux 09/01/22 03/28/24 Unknown release fluoxetine 10 mg capsule (Prozac) 10 mg PO QPM 04/04/23 03/28/24 01/29/24 ondansetron 4 mg disintegrating 4 mg PO Q6H PRN nausea and 06/08/23 03/28/24 Unknown tablet vomiting #12 tabs calcium 500 mg tablet 500 mg PO BID 01/16/24 03/28/24 01/29/24 ezetimibe 10 mg tablet 10 mg PO HS 01/16/24 03/28/24 01/29/24 Active Medications Generic Name Dose Route Start Last Admin Trade Name Freq PRN Reason Stop Dose Admin Acetaminophen 650 mg 03/28/24 22:21 03/29/24 03:52 Acetaminophen 325 Mg Tab PO 04/27/24 22:20 650 mg Q6H PRN Administration Pain & Pre PT Piperacillin Sod/Tazobactam Sod 4.5 gm in 100 mls @ 25 mls/hr 03/29/24 04:00 03/29/24 03:47 Zosyn IV 04/02/24 03:59 25 mls/hr Q8H ANA LUISA Administration Protocol Lorazepam 0.5 mg 03/28/24 23:22 03/28/24 23:40 Lorazepam 0.5 Mg Tab PO 04/27/24 23:21 0.5 mg HS PRN Administration Anxiety Trazodone HCl 12.5 mg 03/28/24 23:30 03/28/24 23:40 Trazodone Hcl 50 Mg Tab PO 04/27/24 23:29 12.5 mg HS ANA LUISA Administration NPO Date Last Intake of Fluids: 03/28/24 Time Last Intake of Fluids: 22:20 Date Last Intake of Solids: 03/28/24 Time Last Intake of Solids: 22:20 Past Medical History Medical History Hip impingement syndrome Iliopsoas bursitis previous injection with dr. jacobo Patellofemoral arthralgia of left knee left knee injection with dr. jacobo Pancreatic cyst follows with Dr. Samaniego - no issues Arthritis H. pylori infection hx of approx 5 yrs ago, following gastric bypass GERD (gastroesophageal reflux disease) Anemia has had iron infusions x 2, most recent 2022 TMJ (dislocation of temporomandibular joint) (2018) with surgery/steroid injection, 5 yrs ago, no more locking Depression Anxiety Mitral regurgitation MVP (mitral valve prolapse) follows with Dr. Rojo Hyperlipidemia no meds History of COVID-19 2020 > not hospitalized Nerve pain in legs reason for gabapentin Past Family History Family History Uncle Colon cancer Father Colonic polyp Brother Colonic polyp Sister Colonic polyp Past Surgical History Surgical History History of esophagogastroduodenoscopy (EGD) History of colonoscopy History of tooth extraction H/O bilateral breast reduction surgery H/O gastric bypass Social History Smoking Status: Never smoker Do You Dip or Chew Tobacco: No Hx Alcohol Use: No Hx Substance Use: No substance use type: does not use Physical Exam Vital Signs Last Vital Signs Temp 36.4 C L 03/29/24 06:50 Pulse 68 03/29/24 06:50 Resp 16 03/29/24 06:50 BP 104/67 03/29/24 06:50 Pulse Ox 95 03/29/24 06:50 O2 Del Method Room Air 03/29/24 06:50 Testing Laboratory Results 03/28/24 16:45 03/28/24 16:45 Urine Color Yellow 03/28/24 16:45 Urine Appearance Clear (Clear) 03/28/24 16:45 Urine pH 6.5 (4.5-7.5) 03/28/24 16:45 Ur Specific [place] 1.004 (1.000-1.030) 03/28/24 16:45 Urine Protein Negative (Negative) 03/28/24 16:45 Urine Glucose (UA) Negative (Negative) 03/28/24 16:45 Urine Ketones Negative (Negative) 03/28/24 16:45 Urine Nitrite Negative (Negative) 03/28/24 16:45 Ur Leukocyte Esterase Negative (Negative) 03/28/24 16:45 Echocardiogram Date: 07/19/22 EF: 55-60% LV Function: normal Valvular Disease: + no significant valvular disease
[2024-03-29] MEDS ORDERED: ONDANSETRON INJ 2 MG/ML 2 ML VIAL IV PRN (07:16)
[2024-03-29] MEDS ORDERED: KETOROLAC 30 MG/ML VIAL IV PRN (07:16)
[2024-03-29] MEDS ORDERED: ATROPINE SULFATE 0.1 MG/ML 10ML SYR IV PRN (07:16)
[2024-03-29] MEDS ORDERED: PROMETHAZINE HCL 6.25 MG in SODIUM CHLORIDE 0.9% 50 ML IV PRN (07:16)
[2024-03-29] MEDS ORDERED: PHENYLEPHRINE HCL 10 MG/ML VIAL ONE (07:32)
[2024-03-29] MEDS ORDERED: NEOSTIGMINE METHYLSULFATE 1 MG/ML 10ML VIAL ONE (08:04)
[2024-03-29] MEDS ORDERED: GLYCOPYRROLATE 0.2 MG/ML VIAL ONE (08:04)
[2024-03-29] MEDS ORDERED: KETOROLAC 30 MG/ML VIAL ONE (08:07)
[2024-03-29] MEDS: BUPIVACAINE/EPINEPHRINE 0.25% 1:200,000 30 ML VIAL ONE (08:12)
--- NOTE | 2024-03-29 08:16 | Post Operative Brief Note ---
PG Immediate Post Op with CF Date of Surgery March 29, 2024 Pre & Post Diagnosis Operation Date: 03/29/24 07:30 Pre-Op Diagnosis: Acute Appendicitis Post-Op Diagnosis: Acute Appendicitis without perforation I identified the patient and participated in the time-out.: Yes Procedure Operation Date: 03/29/24 07:30 Actual Procedures p Laparoscopic Appendectomy(Not Applicable) - Marques Parekh DO Surgeon Marques Parekh DO Train Operations Supervisor Grzegorz VALLE Estimated Blood Loss 10 Findings See Below Acutely inflamed, dilated appendix without evidence of tawanda perforation Specimens Specimen Description: A: Appendix Drains Majano Catheter Anesthesia Type General Complications none Disposition Disposition: Recovery Room
--- NOTE | 2024-03-29 08:19 | Operative Report ---
PG Post Operative Report Pre & Post Diagnosis Operation Date: 03/29/24 07:30 Pre-Op Diagnosis: Acute Appendicitis Post-Op Diagnosis: Acute Appendicitis without perforation I identified the patient and participated in the time-out.: Yes Procedure Operation Date: 03/29/24 07:30 Actual Procedures p Laparoscopic Appendectomy(Not Applicable) - Marques Parekh DO Surgeon Marques Parekh DO [employer] Grzegorz VALLE Estimated Blood Loss 10 Findings See Below Acutely inflamed, dilated appendix without evidence of tawanda perforation Specimens Appendix to pathology Drains None Anesthesia Type General Complications none Disposition Disposition: Recovery Room Indications 53-year-old female with acute appendicitis Description of Procedure The patient was brought to the OR and placed in the supine position and SCD's placed. At this time she underwent general endotracheal anesthesia without incident. At this time a Majano catheter was placed under sterile conditions. Her abdomen was prepped and draped in the usual sterile fashion. She was given appropriate pre-operative antibiotics. A timeout was called, the procedure was verified as Laparoscopic appendectomy, possible open. Surgical, anesthesia and nursing teams agreed and the procedure was begun. After injection of 0.25% Marcaine with epinephrine, a supraumbilical incision was made using a #11 blade scalpel and carried down to the fascia with a hemostat. The abdomen was then elevated with towel clamps and entered using the Veress needle confirming position using the saline drop test. Pneumoperitoneum was established and 5mm trocar was placed. Laparoscope was introduced. No injury was seen from our entrance to the abdomen. At this time a 5mm suprapubic port and 12mm LLQ port were placed under direct visualization. The patient was placed in Trendelenburg and rotated to the left. At this time the appendix was visualized and the tip was freed and elevated toward the abdominal wall. The appendix appeared inflamed, dilated and edematous. There was a severe amount of inflammation near the base of the appendix. The terminal ileum was carefully dissected away from the base. A window was created in the mesoappendix at the base of the appendix. A 45mm purple load stapler was then fired across the base of the appendix which appeared healthy. The mesoappendix was then taken using Harmonic device. The appendix was then placed in an Endocatch bag and removed through the LLQ port site. Staple line was inspected and was intact. Hemostasis was complete. The 12 mm port was then closed at the fascial level using a 0 Vicryl suture using the suture passer. All ports were removed under direct visualization and no bl eeding was noted. The abdomen was desufflated and the skin was closed using 4-0 Monocryl in a subcuticular fashion. Sterile dressings were applied. Majano catheter was removed. The patient was then awakened from anesthesia having remained stable throughout the entire case and transported to PACU. All needle and sponge counts were correct x 2. The nurse practitioner was present scrubbed for the entire case. She was essential in positioning, prepping and draping, driving the laparoscope, closure of the incisions and placement of dressings. I attest to the content of the Intraoperative Record and any orders documented therein. Any exceptions are noted below.
[2024-03-29] MEDS: fentaNYL citrate PF 100 MCG/2 ML VIAL IV PRN (08:40)
--- NOTE | 2024-03-29 09:07 | Anesthesiology Progress Note ---
Date of Service March 29, 2024 Anesthesia Post Procedure Vital Signs Vital Signs: Temp Pulse Pulse Pulse Resp BP BP 03/29/24 09:05 85 20 113/61 03/29/24 08:50 63 12 101/52 L 03/29/24 08:40 77 22 108/62 03/29/24 08:32 36.2 C L 96 H 14 101/71 03/29/24 06:50 36.4 C L 68 16 104/67 03/28/24 22:20 36.6 C 90 16 121/63 03/28/24 21:59 91 H 16 114/66 03/28/24 20:00 87 16 126/89 03/28/24 19:00 94 H 16 119/81 03/28/24 18:43 81 18 125/81 03/28/24 16:14 36.1 C L 106 H 18 104/60 Pulse Ox O2 Del Method O2 Flow Rate 03/29/24 09:05 100 Room Air 03/29/24 08:50 98 Oxymask 4 03/29/24 08:40 100 Oxymask 6 03/29/24 08:32 99 Oxymask 8 03/29/24 06:50 95 Room Air 03/28/24 22:20 97 Room Air 03/28/24 21:59 98 Room Air 03/28/24 20:00 97 Room Air 03/28/24 19:00 99 Room Air 03/28/24 18:43 96 Room Air 03/28/24 16:14 95 Room Air Pain Intensity Abdomen: Pain Intensity: 2 Transfer of Care Handoff Completed per policy Notes Mental Status: alert / awake / arousable Patient Amnestic to Procedure: Yes Nausea / Vomiting: adequately controlled Pain: adequately controlled Airway Patency, RR, SpO2: stable & adequate BP & HR: stable & adequate Hydration State: stable & adequate Anesthetic Complications: no major complications apparent
[2024-03-29] MEDS: FAMOTIDINE/PF 20 MG/2 ML VIAL IV ONE (09:50)
[2024-03-29] MEDS: ACETAMINOPHEN 1,000 MG/100 ML VIAL IV PRN (11:06)
[2024-03-29] MEDS: SODIUM CHLORIDE 0.9% 500 ML IV SCH (14:16)
[2024-03-29] MEDS: oxyCODONE HCL IR 5 MG TAB (IMMEDIATE RELEASE) PO PRN (17:22)
[2024-03-29] MEDS: GABAPENTIN 100 MG CAP PO SCH (20:18)
[2024-03-29] MEDS: FLUoxetine HCL 10 MG CAP PO SCH (20:19)
[2024-03-30 04:18] VITALS: RESP 16
[2024-03-30 07:09] LABS: Basophils # (auto) 0.01 K/uL (0.00-0.20); Basophils % (auto) 0.1 %; Hematocrit (blood only) 31.6 % (37.0-47.0); Hemoglobin 10.3 g/dl (12.0-16.0); Immature Granulocytes # (auto) 0.08 K/uL (0.01-0.20); Immature Granulocytes % (auto) 0.5 %; Lymphocytes # (auto) 0.94 K/uL (1.20-3.40); Lymphocytes % (auto) 6.3 %; Mean Corpuscular Hgb Conc 32.6 g/dL (32.0-36.0); Mean Corpuscular Volume 92.1 fL (80.0-100.0); Monocytes # (auto) 0.82 K/uL (0.11-0.59); Monocytes % (auto) 5.5 %; Neutrophils # (auto) 13.01 K/uL (1.40-6.50); Neutrophils % (auto) 87.6 %; Platelet Count 333 K/uL (130-400); RDW Coefficient of Variation 11.9 % (11.5-14.5); RDW Standard Deviation 40.4 fL (36.4-46.3); Red Blood Count 3.43 M/uL (4.20-5.40); White Blood Count 14.86 K/ul (4.8-10.8)
[2024-03-30 07:25] LABS: Calcium 8.7 mg/dl (8.6-10.3); Creatinine Clr Calc Pharmacy 98.6 ml/min
[2024-03-30 07:26] VITALS: BP 93/57; PULSE 66; TEMP 97.7; O2SAT 93
--- NOTE | 2024-03-30 09:22 | Surgery Progress Note ---
Date of Service March 30, 2024 Assessment & Plan (1) Acute appendicitis: Plan: POD#1 lap appy WBC 14, patient afebrile tolerating clears, no n/v. will adv diet as tolerates pain controlled on current regimen incisions c/d/i, some ecchymosis of LLQ site pending toleration of diet advancement and ongoing pain control she may be d/c'd to home after lunch will give pt a course of po abx to complete at home f/u in the office within [address] paredes, d/c instructions reviewed Admission and Anticipated Discharge Date Admission Date: March 28, 2024 Subjective Patient feeling well. Expected post op pain manageable. Tolerating clears, no n/v. Feels like she is going to have a BM but has not yet Physical Exam Physical Exam: awake/alert, no distress Gastrointestinal (Abdomen): Inspection/Auscultation: + abdominal surgical incision (c/d/i with skin glue, some ecchymosis of LLQ incision); abdomen not distended Percussion/Palpation: + abdomen tender (expected post op discomfort to palpation) and abdomen soft Results & Data Vital Signs (Past 12 Hours) Vital Signs Temp Pulse Resp BP Pulse Ox O2 Del Method 03/30/24 07:26 97.7 F 66 16 93/57 L 93 Room Air 03/30/24 04:17 97.6 F 59 L 16 104/72 94 Room Air 03/29/24 23:35 97.4 F L 72 18 99/55 L 93 Room Air PG Care Time/CCT Total # of Minutes Spent Total Time Spent with Patient: Total time spent is greater than 50% in coordination of care (as documented) at patient's floor/unit and/or counseling patient: Coding Level of Care Code 91138 Post Operative Follow-Up Diagnoses Acute appendicitis K35.80
--- NOTE | 2024-03-31 12:36 | Discharge Summary ---
Date of Service March 30, 2024 Principal Diagnosis acute appendicitis Discharge Exam awake/alert, no distress Gastrointestinal (Abdomen) Inspection/Auscultation: + abdominal surgical incision (c/d/i with skin glue, some ecchymosis of LLQ incision); abdomen not distended Percussion/Palpation: + abdomen tender (expected post op discomfort to palpation) and abdomen soft Discharge Data Allergies Allergy/AdvReac Type Severity Reaction Status Date / Time latex AdvReac Mild ITCHING Verified 03/28/24 21:11 simvastatin AdvReac Mild MUSCLE PAIN Verified 03/28/24 21:11 Procedures Performed Operation Date: 03/29/24 07:30 Actual Procedures p Laparoscopic Appendectomy(Not Applicable) - Marques Parekh, Ordered Studies 03/28/24 16:57 CT abd pelvis IV con only Stat Hospital Course (1) Acute appendicitis: This is a 53yF who presented to the [facility] ED on 03/28/24 with right lower quadrant abdominal pain. Workup in the ED showed a WBC of 11.[address] a/p concerning for acute appendicitis. The patient was tender to palpation in the RLQ. Patient made NPO with IVF and booked for the OR. On 03/29 the patient went to the OR with Dr. Parekh for a laparoscopic appendectomy. The patient tolerated the procedure well, see operative report for full details. Post operatively the patient's diet was advanced, pain managed on prn meds, and incisions clean/dry/intact. On POD#1 the patient was deemed stable for discharge to home. She was instructed to follow up in the office within 2 weeks and was asked to complete a small course of antibiotics at home. Total Time Total Time Spent Total Time Spent (In Minutes): 15 Discharge Plan Discharge Items Patient Disposition: Home - Self-Care Reason For Visit: ACUTE APPENDICITIS Discharge Diagnosis: laparoscopic appendectomy Activity: As commented below Lifting: No more than 10 pounds Bathing Comment: you can shower. No soaking in pools/bath for 2 weeks Exercise/Sports: Wait until after follow-up appointment Driving/Machine Use: no driving if taking narcotic pain medication Non-emergency contact: Surgeon Call non-emergency contact if: you have any medication questions, your symptoms worsen, you have a fever, your temperature is above 101.5, your wound has increased redness, your wound has increased drainage and your wound pain has increased Follow-up/Referrals: Marques Parekh, [Physician] - (call office for follow up in 1-2 weeks ) Ethel Hernandez PA-C [Primary Care Provider] - Diet: Regular Addtl Attending Provider Instructions: You have surgical glue called dermabond on your surgical site incisions. You may shower with this on. This will tend to come off within a couple of weeks. Do not pick at it. please complete the full course of antibiotic prescribed to you Pending Studies at Discharge: Yes Studies:: surgical pathology Stand-Alone Forms: My [facility] [employer], Pain - Opioid Pain Management, Work/School Release, Smoking Cessation Medications and DC Order Prescriptions: New oxycodone 5 mg tablet 5 - 10 mg PO .[id number] MDD no more than 6 tabs in 24hours PRN (Reason: pain) Qty: 15 0RF amoxicillin-pot clavulanate 875-125 mg tablet 1 tab PO BID Qty: 10 0RF Continued multivitamin Tablet 1 tab PO DAILY lorazepam [Ativan] 1 mg tablet 0.5 mg PO HS trazodone 50 mg tablet 12.5 mg PO HS fluoxetine [Prozac] 10 mg capsule 10 mg PO QPM gabapentin 100 mg Capsule 100 mg PO HS cyanocobalamin (vitamin B-12) 1,000 mcg/mL Kit 100 mcg IM MONTHLY pantoprazole 40 mg Tablet,Delayed Release (Dr/Ec) 40 mg PO DAILY PRN (Reason: Acid Reflux) ondansetron 4 mg tablet,disintegrating 4 mg PO Q6H PRN (Reason: nausea and vomiting) Qty: 12 0RF calcium 500 mg Tablet 500 mg PO BID ezetimibe 10 mg tablet 10 mg PO HS Discharge Orders: Discharge Order (Routine); Ordered 03/30/24 Ordered By: Marianne Lockwood/Other Patient Handouts: Preventing Deep Vein Thrombosis Admission Data Admit Date/Time: 03/28/24 21:05 Attending Provider: Marques Parekh Admit Provider: Marques Parekh Primary Care Provider: Ethel Hernandez Other Interventions: Discharge Summary Assessment (RN) Last Done: 03/30/24 10:40 Coding Level of Care Code 02756 IN/OBS DISCH 30 MIN/LESS Diagnoses Acute appendicitis K35.80
== END 2024-03-30 13:23 | disposition home or self-care (01) | DRG 399 ==
LOC: ED 15:48 → 3N 21:05